=== PATIENT | female | born 1965 | race Hispanic/Latino ===

== ENCOUNTER 2017-09-04 10:29 | Outpatient (CLI) | payer MEDICARE, MEDICAID | END 2017-09-04 10:30 | disposition home or self-care (01) | LOC: BICMAMMO 10:29 | PROVIDERS: ATTEND Family Medicine | DX: Z12.31 Encounter for screening mammogram for malignant neoplasm of breast (principal); M81.0 Age-related osteoporosis without current pathological fracture | CPT/HCPCS: 77063; 77067; 77080 ==

== ENCOUNTER 2017-09-15 14:30 | Outpatient (CLI) | payer MEDICARE, MEDICAID | END 2017-09-15 14:31 | disposition home or self-care (01) | LOC: BICRAD 14:30 | PROVIDERS: ATTEND Family Medicine | DX: R05 Cough (principal); R06.02 Shortness of breath; M81.0 Age-related osteoporosis without current pathological fracture; I51.7 Cardiomegaly; R09.89 Other specified symptoms and signs involving the circulatory and respiratory systems; J98.4 Other disorders of lung; Z94.0 Kidney transplant status; Z79.899 Other long term (current) drug therapy | CPT/HCPCS: 71046; 72072; 72100 ==

== ENCOUNTER 2017-11-03 09:01 | Emergency (ER) | payer MEDICARE, MEDICAID ==
[2017-11-03 09:27] LABS: #Eosinphils 0.3 thou/uL (0.0-0.7); #Lymphocytes 1.3 thou/uL (1.20-3.40); #Monocytes 0.6 thou/uL (0.11-0.59); %Basophils 0.6 % (0.0-1.0); %Eosinophils 4.5 % (0.0-10.0); %Lymphocytes 20.4 % (21.0-51.0); %Monocytes 9.3 % (0.0-10.0); %Neutrophils 65.1 % (42.0-75.0); Hemoglobin 14.3 g/dL (12.0-16.0); Mean Platelet Volume 10.8 fL (7.4-10.4); Platelet Count 116 thou/uL (130-400); RBC Distribution Width 13.8 % (11.5-14.5); Red Blood Cell (RBC) Count 4.47 mill/uL (4.20-5.40); White Blood Cell (WBC) Count 6.2 thou/uL (4.8-10.8)
--- NOTE | 2017-11-03 09:34 | RAD ---
CHEST ONE VIEW: History: Palpitation. Kidney transplant patient. Comparison: 06-10-15 FINDINGS: Upright chest radiograph demonstrates enlarged cardiac silhouette. The pulmonary vessels are slightly prominent. No consolidation or mass. No pneumothorax or osseous abnormalities. There appears to be p revious vertebroplasty change projecting over the midthoracic spine. IMPRESSION: Cardiomegaly with pulmonary vascular prominence. Correlate for volume overload. POS: [facility]
[2017-11-03 09:45] LABS: ALT (SGPT) 70 U/L (8-55); AST (SGOT) 56 U/L (5-34); Albumin 4.3 g/dL (3.5-5.0); Alkaline Phosphatase 212 U/L (40-150); Anion Gap 14 mmol/L (10-20); BUN (Urea Nitrogen) 30 mg/dL (9.8-20.1); Bilirubin, Total 0.6 mg/dL (0.2-1.2); CK (CPK) 60 U/L (29-168); Calc. Creatinine Clearance 0 mL/min (70-130); Calcium 9.4 mg/dL (7.8-10.44); Carbon Dioxide 21 mmol/L (22-29); Chloride 111 mmol/L (98-107); Estimated GFR-MDRD 38; Globulin 3.5 g/dL (2.4-3.5); Glucose 98 mg/dL (70-105); Lipase 17 U/L (8-78); Potassium 4.6 mmol/L (3.5-5.1); Protein, Total 7.8 g/dL (6.0-8.3); Sodium 141 mmol/L (136-145)
[2017-11-03] MEDS ORDERED: Aspirin 325 MG TAB ONE (09:45)
[2017-11-03] MEDS ORDERED: cloNIDine 0.1 MG TAB ONE (09:45)
[2017-11-03 09:49] LABS: CKMB 1.1 ng/mL (0-6.6); Troponin I Less than 0.010 ng/mL (< 0.028)
--- NOTE | 2017-11-05 15:02 | EKG ---
Test Reason : Blood Pressure : / mmHG Vent. Rate : 074 BPM Atrial Rate : 074 BPM P-R Int : 126 ms QRS Dur : 078 ms QT Int : 376 ms P-R-T Axes : 034 -07 080 degrees QTc Int : 417 ms Normal sinus rhythm Normal ECG Confirmed by LENNY PINZON ([id number]), commercial production editor EMEKA DANIEL ([id number]) on 11/05/2017 3:00:39 PM Referred By: Confirmed By:LENNY PINZON
== END 2017-11-03 11:50 | disposition home or self-care (01) ==
LOC: ERS 09:01
DX: I12.0 Hypertensive chronic kidney disease with stage 5 chronic kidney disease or end stage renal disease (principal); E11.22 Type 2 diabetes mellitus with diabetic chronic kidney disease; N18.6 End stage renal disease; E78.5 Hyperlipidemia, unspecified; F17.210 Nicotine dependence, cigarettes, uncomplicated; Z99.2 Dependence on renal dialysis; Z79.4 Long term (current) use of insulin
CPT/HCPCS: 71045; 80053; 82553; 83690; 84484; 85025; 93005; 94760

== ENCOUNTER 2018-01-13 15:29 | Emergency (ER) | payer MEDICARE, MEDICAID ==
[2018-01-13 15:58] LABS: #Eosinphils 0.1 thou/uL (0.0-0.7); #Lymphocytes 0.9 thou/uL (1.20-3.40); #Monocytes 0.5 thou/uL (0.11-0.59); #Neutrophils 5.6 thou/uL (1.40-6.50); %Basophils 0.1 % (0.0-1.0); %Eosinophils 0.9 % (0.0-10.0); %Lymphocytes 12.8 % (21.0-51.0); %Neutrophils 79.2 % (42.0-75.0); Hemoglobin 12.8 g/dL (12.0-16.0); Mean Corpuscular HGB CONC 33.1 g/dL (32.0-36.0); Mean Corpuscular Hemoglobin 31.3 pg (27.0-31.0); Mean Corpuscular Volume 94.7 fl (81.0-99.0); Mean Platelet Volume 10.3 fL (7.4-10.4); Platelet Count 154 thou/uL (130-400); RBC Distribution Width 13.2 % (11.5-14.5); Red Blood Cell (RBC) Count 4.09 mill/uL (4.20-5.40); White Blood Cell (WBC) Count 7.1 thou/uL (4.8-10.8)
--- NOTE | 2018-01-13 16:01 | CT ---
CT BRAIN WITHOUT CONTRAST: 01/13/18 HISTORY: Left sided sensation changes, patient is a kidney transplant recipient. FINDINGS: Comparison made with exam of 07/18/15. Old lacunar infarct in the left rolando is again seen. Changes of chronic small vessel ischemic disease and lacunar infarction. The periventricular white matter are again noted. No evidence of acute infarc t, hemorrhage, midline shift, or abnormal extra-axial fluid collections are seen. The ventricular siz e is normal and the basilar cisterns patent. The bony calvarium is intact. The visualized paranasal s inuses and mastoid air cells are well aerated. IMPRESSION: No CT evidence of acute intracranial process. Findings were discussed over the telephone with ER physician, at 3:42 p.m. POS: [facility]
[2018-01-13 16:20] LABS: PTT 30.2 SEC (22.9-36.1); Prothrombin Time 13.3 SEC (12.0-14.7)
[2018-01-13 16:21] LABS: ALT (SGPT) 38 U/L (8-55); AST (SGOT) 37 U/L (5-34); Albumin 4.5 g/dL (3.5-5.0); Alkaline Phosphatase 224 U/L (40-150); Anion Gap 15 mmol/L (10-20); BUN (Urea Nitrogen) 29 mg/dL (9.8-20.1); Bilirubin, Total 0.5 mg/dL (0.2-1.2); Calc. Creatinine Clearance 0 mL/min (70-130); Carbon Dioxide 19 mmol/L (22-29); Chloride 106 mmol/L (98-107); Estimated GFR-MDRD 30; Globulin 3.9 g/dL (2.4-3.5); Glucose 362 mg/dL (70-105); Potassium 5.4 mmol/L (3.5-5.1); Protein, Total 8.4 g/dL (6.0-8.3); Sodium 135 mmol/L (136-145)
[2018-01-13 16:26] LABS: CKMB 1.3 ng/mL (0-6.6); Troponin I Less than 0.010 ng/mL (< 0.028)
[2018-01-13] MEDS ORDERED: Insulin Regular 300 UNITS/3 ML VIAL ONE (16:51)
[2018-01-13] MEDS ORDERED: cloNIDine 0.1 MG TAB ONE (16:51)
== END 2018-01-13 17:30 | disposition home or self-care (01) ==
LOC: ERS 15:29
DX: E11.65 Type 2 diabetes mellitus with hyperglycemia (principal); E11.22 Type 2 diabetes mellitus with diabetic chronic kidney disease; I12.0 Hypertensive chronic kidney disease with stage 5 chronic kidney disease or end stage renal disease; N18.6 End stage renal disease; D64.9 Anemia, unspecified; F17.210 Nicotine dependence, cigarettes, uncomplicated; Z79.899 Other long term (current) drug therapy
CPT/HCPCS: 36415; 36416; 70450; 80053; 82010; 82553; 84484; 85025; 85610; 85730; 93005; J1815

== ENCOUNTER 2018-05-10 05:28 | Emergency (ER) | payer MEDICARE, MEDICAID ==
[2018-05-10 05:51] LABS: #Basophils 0.1 thou/uL (0.0-0.2); #Eosinphils 0.2 thou/uL (0.0-0.7); #Lymphocytes 1.4 thou/uL (1.20-3.40); #Monocytes 0.8 thou/uL (0.11-0.59); #Neutrophils 3.6 thou/uL (1.40-6.50); %Basophils 1.2 % (0.0-1.0); %Eosinophils 2.9 % (0.0-10.0); %Lymphocytes 23.6 % (21.0-51.0); %Monocytes 13.3 % (0.0-10.0); Hemoglobin 11.9 g/dL (12.0-16.0); Mean Corpuscular HGB CONC 32.9 g/dL (32.0-36.0); Mean Corpuscular Hemoglobin 30.8 pg (27.0-31.0); Mean Corpuscular Volume 93.5 fL (78.0-98.0); Mean Platelet Volume 10.9 fL (7.4-10.4); Platelet Count 145 thou/uL (130-400); Red Blood Cell (RBC) Count 3.85 mill/uL (4.20-5.40)
[2018-05-10] MEDS ORDERED: Nitroglycerin 2% Ointment 1 INCH/1 GM Packet ONE (05:54)
[2018-05-10 06:07] LABS: ALT (SGPT) 29 U/L (8-55); AST (SGOT) 31 U/L (5-34); Albumin 4.3 g/dL (3.5-5.0); Alkaline Phosphatase 155 U/L (40-150); Anion Gap 12 mmol/L (10-20); BUN (Urea Nitrogen) 30 mg/dL (9.8-20.1); Bilirubin, Total 0.5 mg/dL (0.2-1.2); CK (CPK) 54 U/L (29-168); Calc. Creatinine Clearance 0 mL/min (70-130); Calcium 9.2 mg/dL (7.8-10.44); Carbon Dioxide 23 mmol/L (22-29); Chloride 109 mmol/L (98-107); Estimated GFR-MDRD 37; Globulin 3.7 g/dL (2.4-3.5); Glucose 93 mg/dL (70-105); Potassium 4.7 mmol/L (3.5-5.1); Sodium 139 mmol/L (136-145)
[2018-05-10 06:11] LABS: CKMB 1.1 ng/mL (0-6.6); Troponin I Less than 0.010 ng/mL (< 0.028)
--- NOTE | 2018-05-10 08:45 | RAD ---
CHEST 1 VIEW: Date: 05/10/18 INDICATION: History of chest pain, shortness of breath. COMPARISON: Prior exam dated 11/03/17. FINDINGS: There is cardiomegaly, which is stable. Pulmonary vasculature is within normal limits. No consolidati on, pleural effusion, or pneumothorax is evident. Surgical clips are again seen within the left upper extremity/left axillary region. Diffuse osteopenia remains. Cholecystectomy clips are seen within th e right upper quadrant. IMPRESSION: Stable cardiomegaly. No definite acute abnormality. POS: [facility]
== END 2018-05-10 07:17 | disposition home or self-care (01) ==
LOC: ERS 05:28
DX: R07.89 Other chest pain (principal); I12.0 Hypertensive chronic kidney disease with stage 5 chronic kidney disease or end stage renal disease; E11.22 Type 2 diabetes mellitus with diabetic chronic kidney disease; N18.6 End stage renal disease; D63.1 Anemia in chronic kidney disease; Z99.2 Dependence on renal dialysis; Z94.0 Kidney transplant status; Z79.4 Long term (current) use of insulin; Z79.899 Other long term (current) drug therapy
CPT/HCPCS: 36415; 71045; 80053; 82550; 82553; 84484; 85025; 93005

== ENCOUNTER 2018-07-12 12:00 | Emergency (ER) | payer MEDICARE, OTHER ==
[2018-07-12 13:31] LABS: Bilirubin Negative (Negative); Blood, Urine Negative (Negative); Clarity CLEAR (Clear); Glucose, Urine (Dipstick) Negative (Negative); Leukocyte Negative (Negative); Nitrite Negative (Negative); Protein, Urine (Dipstick) Negative (Neg-Trace); Urobilinogen 0.2 mg/dL (0.2-1.0); pH, Urine 5.5 (5.0-9.0)
[2018-07-12] MEDS ORDERED: Acetaminophen 500 MG TAB ONE (14:10)
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
== END 2018-07-12 14:24 | disposition home or self-care (01) ==
LOC: ERS 12:00
DX: S83.91XA Sprain of unspecified site of right knee, initial encounter (principal); R07.9 Chest pain, unspecified; I12.0 Hypertensive chronic kidney disease with stage 5 chronic kidney disease or end stage renal disease; E11.22 Type 2 diabetes mellitus with diabetic chronic kidney disease; N18.6 End stage renal disease; D63.1 Anemia in chronic kidney disease; I63.9 Cerebral infarction, unspecified; Z79.899 Other long term (current) drug therapy; W22.10XA Striking against or struck by unspecified automobile airbag, initial encounter; V89.2XXA Person injured in unspecified motor-vehicle accident, traffic, initial encounter
CPT/HCPCS: 71046; 81003

== ENCOUNTER 2019-05-30 16:03 | Emergency (ER) | payer MEDICARE, OTHER ==
[2019-05-30] MEDS ORDERED: Acetaminophen 500 MG TAB ONE (16:27)
--- NOTE | 2019-05-30 16:46 | RAD ---
Left knee 4 views: 05/30/2019 COMPARISON: None HISTORY: Fall, left knee pain FINDINGS: There is extensive atherosclerotic calcification posterior to the left tibia and femur. No knee joint effusion, displaced fracture, or evidence of dislocation. The bones appear demineralized. IMPRESSION: No acute osseous abnormality.
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
== END 2019-05-30 17:40 | disposition home or self-care (01) ==
LOC: ERS 16:03
DX: S73.101A Unspecified sprain of right hip, initial encounter (principal); S80.02XA Contusion of left knee, initial encounter; E11.22 Type 2 diabetes mellitus with diabetic chronic kidney disease; D63.1 Anemia in chronic kidney disease; I12.0 Hypertensive chronic kidney disease with stage 5 chronic kidney disease or end stage renal disease; N18.6 End stage renal disease; Z99.2 Dependence on renal dialysis; Z79.4 Long term (current) use of insulin; W18.30XA Fall on same level, unspecified, initial encounter

== ENCOUNTER 2019-11-07 17:29 | Emergency (ER) | payer MEDICARE, OTHER ==
[~2019-11-07 17:29] MED LIST: Iopamidol-370 76% 500 ML 1 ML ONE
[2019-11-07 18:13] LABS: #Lymphocytes 0.3 thou/uL (1.20-3.40); #Neutrophils 7.5 thou/uL (1.40-6.50); %Basophils 0.3 % (0.0-1.0); %Lymphocytes 3.5 % (21.0-51.0); %Monocytes 0.2 % (0.0-10.0); Hemoglobin 8.5 g/dL (12.0-16.0); Mean Corpuscular HGB CONC 33.3 g/dL (32.0-36.0); Mean Corpuscular Hemoglobin 30.9 pg (27.0-31.0); Mean Corpuscular Volume 92.6 fL (78.0-98.0); Mean Platelet Volume 10.2 fL (7.4-10.4); Platelet Count 105 thou/uL (130-400); RBC Distribution Width 15.8 % (11.5-14.5); Red Blood Cell (RBC) Count 2.75 mill/uL (4.20-5.40); White Blood Cell (WBC) Count 7.9 thou/uL (4.8-10.8)
[2019-11-07 18:19] LABS: ALT (SGPT) 7 U/L (8-55); AST (SGOT) 40 U/L (5-34); Albumin 3.7 g/dL (3.5-5.0); Alkaline Phosphatase 140 U/L (40-110); Anion Gap 20 mmol/L (10-20); BUN (Urea Nitrogen) 71 mg/dL (9.8-20.1); Bilirubin, Total 0.6 mg/dL (0.2-1.2); Calc. Creatinine Clearance 0 mL/min (70-130); Calcium 9.2 mg/dL (7.8-10.44); Carbon Dioxide 18 mmol/L (22-29); Chloride 103 mmol/L (98-107); Estimated GFR-MDRD 13; Globulin 3.8 g/dL (2.4-3.5); Glucose 158 mg/dL (70-105); Potassium 5.8 mmol/L (3.5-5.1); Protein, Total 7.5 g/dL (6.0-8.3); Sodium 135 mmol/L (136-145)
--- NOTE | 2019-11-07 18:20 | RAD ---
PORTABLE CHEST: Date: 11-07-2019 Provided Clinical History: Dyspnea. FINDINGS: Comparison 05-10-18. Cardiac silhouette appears enlarged. There is bilateral, left greater than right, parahilar airspace disease. There is no pleural fluid or pneumothorax apparent. IMPRESSION: Bilateral parahilar airspace disease. Pneumonia versus edema. POS: [facility]
[2019-11-07 18:25] LABS: Anisocytosis SLIGHT = 6-15 cells (100X) (0-5/hpf); MDiff Complete? YES; Platelet Morphology Comment Appears Decreased; Polychromasia SLIGHT = 2-3 cells (100X) (0-2/hpf)
[2019-11-07] MEDS ORDERED: Cefepime 2 GM VIAL ONE (18:30)
--- NOTE | 2019-11-07 19:04 | CT ---
CT PULMONARY ANGIOGRAM WITH IV CONTRAST AND 3D MIP RECONSTRUCTIONS: Date: 11-07-2019 Provided Clinical History: Tachycardia and hypoxia. FINDINGS: There is no evidence for central or segmental pulmonary embolus. Vascular calcifications including co ronary are demonstrated. The airway appears patent and is of normal caliber. No evidence for thoracic lymph node enlargement. There is no pleural fluid or pneumothorax apparent. There is diffuse bilateral airspace disease, comprised predominately of consolidation involving both lower lobes, with areas of ground glass opacity seen in a wide-spread but occasional peripheral distr ibution involving both lungs, left greater than right. The osseous structures demonstrate no concerning lytic or blastic lesions. Vertebroplasty changes and remote appearing compression deformities are seen involving the thoracic spine. The visualized portions of the upper abdomen appear unremarkable. IMPRESSION: 1. No evidence for central or segmental pulmonary embolus. 2. Extensive bilateral airspace disease. Imaging features can be seen in the setting of viral pneumon ia, but are nonspecific and can occur with a variety of infectious and noninfectious processes. POS: [facility]
[2019-11-07 19:29] LABS: Actual Bicarbonate (HCO3a) 16.6 mEq/L (22-28); Analyzer IN Cardio OR; Base Excess (BEa) -7.1 mEq/L (-2.0 to +3.0); CO2 Tension 29.3 mmHg (35.0-45.0); Calcium, Ionized 1.11 mmol/L (1.12-1.30); Potassium - ABG Lab 5.52 mmol/L (3.70-5.30); pH, Arterial 7.37 (7.35-7.45)
[2019-11-07 19:54] LABS: O2 Tension (PaO2) 49.8 mmHg (80.0-100.0)
[2019-11-07 19:55] LABS: ALV-art Gradient 626.575 (0-20); Puncture Site LBA
[2019-11-07] MEDS ORDERED: Ketamine 50 MG/ML (10ML VIAL) ONE (20:25)
[2019-11-07] MEDS ORDERED: Rocuronium Bromide 10 MG/ML (10ML VIAL) ONE (20:25)
--- NOTE | 2019-11-07 20:38 | HP ---
CHIEF COMPLAINT: Shortness of breath, cough, and shaking. HISTORY OF PRESENT ILLNESS: This patient is a 54-year-old female, who has a history of end-stage renal disease, status post renal transplant. She is followed at [facility] and she is followed by Dr. Angelo Black there. The patient reports that she was just in the hospital and just discharged about 5 days ago from [facility], where she was admitted for a right-sided abdominal hematoma. She had surgery and has a wound VAC in place at this time. The patient reports over the last several days, she has had shaking, increased shortness of breath and a cough that is primarily productive of a clear sputum. She is unaware of having any specific fevers, but says she is shaking. She is unaware of any ill contacts other than having been in the hospital in [place]. PAST MEDICAL HISTORY: Notable for end-stage renal disease, status post renal transplant, diabetes, hypertension, history of hepatitis C, which is previously treated, dyslipidemia, anxiety, depression, and history of chronic pain syndrome, previously on Suboxone. PAST SURGICAL HISTORY: Cholecystectomy, shunt in the left arm, x2, kidney transplant, gastric bypass, and right abdominal wall hematoma. She also reported a history of hernia repair. FAMILY HISTORY: Notable for renal disease. SOCIAL HISTORY: The patient denies smoking, drinking, or drugs. Her record indicates that she previously did smoke half a pack cigarettes per day. Her just passed in May. She currently lives alone. ALLERGIES: INSULIN DETEMIR, LEVEMIR FLEXPEN. CURRENT MEDICATIONS: 1. Tacrolimus 1.5 mg one p.o. q.a.m., 3 mg q. evening. 2. Suboxone 2/0.5 sublingual daily. 3. Prednisone 30 mg daily. 4. Lyrica 50 mg t.i.d. 5. Lasix 20 mg every other day. 6. Azathioprine 50 mg 0.5 b.i.d. 7. Amlodipine 5 mg two p.o. daily. 8. Lantus SoloSTAR sliding scale. 9. Metoprolol 100 mg daily. 10. Prograf 0.5 mg 1.5 tablets daily. 11. Minocycline 100 mg daily. 12. Sodium bicarbonate 650 mg. 13. Bactrim DS. 14. Linezolid 600 mg. PHYSICAL EXAMINATION: VITAL SIGNS: Initial vital signs, the patient's O2 saturation was 70%. She was placed on a non-rebreather O2 at 95%, BP 118/73, pulse 114, respirations 26, temperature is 98.6 oral. Latest vital signs, BP 118/69, pulse 112, respirations 27, O2 saturation was 96% on 8 L nasal cannula. GENERAL APPEARANCE: The patient is ill-appearing. She is awake and alert. She is pleasant. She is able to identify person, place, and time. She is able to give history, although sketchy on number of details. HEENT: Pupils are reactive. HEART: Tachycardic without murmurs. LUNGS: Diminished with minimal rales. ABDOMEN: Soft, nontender, and nondistended. Positive bowel sounds. She does have a wound VAC on the right mid abdomen laterally. EXTREMITIES: No significant cyanosis, clubbing, or edema. PSYCHIATRIC: Normal affect and behavior. NEUROLOGIC: No focal deficits. LABORATORY DATA: White count 7.9, hemoglobin 8.5, platelets 105. Sodium 135, potassium 5.8, chloride 103, CO2 is 18, BUN 71, creatinine is 3.56, glucose 158, lactic acid 1.8, AST 40, ALT 7, alkaline phosphatase 140, albumin 3.7. Chest x-ray, bilateral perihilar airspace disease, pneumonia versus edema. CTA of the chest shows no evidence of PE, extensive bilateral airspace disease with features consistent with viral pneumonia, but nonspecific. IMPRESSION AND PLAN: 1. Acute hypoxic respiratory failure, providing supplemental oxygen. 2. Pneumonia. The patient appears to have bilateral infiltrates consistent with COVID-19, especially in the setting of a normal white count with low lymphocytes, anemia, thrombocytopenia, elevated AST and alkaline phosphatase with what appears to be associated acute renal injury. COVID test has been sent. Case has been discussed with Dr. Magana of [facility], who is recommending attempt to transfer the patient back to her transplant team. Otherwise, consider early intubation in this setting. I placed a call to the patient's transplant provider, Dr. Angelo Black through our transfer center, awaiting to hear back and should they decline transfer, the patient will need to be admitted into an intensive unit. 3. Status post renal transplant, on immunosuppression, unfortunately, making the patient's prognosis for this infection much worse. Again, we need some direction from the transplant team as far as continuing those medications currently, although I suspect they will need to be continued. 4. Acute kidney injury. The patient's previous GFR has been running around 30 to 38, but those are back to 2018 with nothing more recent. She appears to have some prerenal indices and we will hydrate. Continue to monitor. 5. Hyperkalemia in the setting of acute kidney injury. Again, should improve with hydration. 6. Anemia. This is below her previous baseline going back to 2018. It had been again somewhat unclear as to what her renal function is and whether this could be related to that. During the dictation I was able to speak to Dr. Oliver teran for Dr. Black at [facility], who has asked that we call the hospitalist group there in order to get the patient admitted to their facility, working through the transfer center in order to try to make that happen. Job ID: [id number]
[2019-11-07] MEDS ORDERED: Vancomycin 1 GM/200 ML BAG ONE (20:58)
[2019-11-07] MEDS ORDERED: fentaNYL Citrate/PF 2,000 MCG in Sodium Chloride 0.9% 60 ML IV SCH (21:00)
[2019-11-07 21:22] LABS: Actual Bicarbonate (HCO3a) 14.6 mEq/L (22-28); Analyzer IN Cardio ER; Base Excess (BEa) -9.8 mEq/L (-2.0 to +3.0); CO2 Tension 26.4 mmHg (35.0-45.0); Calcium, Ionized 1.06 mmol/L (1.12-1.30); Carboxyhemoglobin (COHb) 0.1 gm% (0.0-3.0); Hemoglobin (Hb) 6.2 g/dL (12.0-16.0); O2 Tension (PaO2) 96.8 mmHg (80.0-100.0); Potassium - ABG Lab 5.55 mmol/L (3.70-5.30); pH, Arterial 7.36 (7.35-7.45)
[2019-11-07 21:25] LABS: Puncture Site LBA
--- NOTE | 2019-11-07 22:15 | RAD ---
PORTABLE CHEST: Date: 11-07-2019 Provided Clinical History: Post intubation. FINDINGS: Comparison 11-07-2019. Interval placement of endotracheal tube, the tip of which terminates in the region of the thoracic in let. An enteric catheter has also been placed, the tip of which overlies the midabdomen. Additional s ignificant interval change from the prior examination is not apparent. IMPRESSION: As above. POS: [facility]
--- NOTE | 2019-11-08 15:30 | EKG ---
Test Reason : Blood Pressure : / mmHG Vent. Rate : 113 BPM Atrial Rate : 113 BPM P-R Int : 128 ms QRS Dur : 068 ms QT Int : 326 ms P-R-T Axes : 027 -16 079 degrees QTc Int : 447 ms Sinus tachycardia Biatrial enlargement Left ventricular hypertrophy Q III Cannot rule out Anterior infarct , age undetermined Abnormal ECG Confirmed by MELI MELTON, MARIELENA Putnam ([id number]), editor trade journal EMEKA DANIEL ([id number]) on 11/08/2019 3:30:25 PM Referred By: Confirmed By:MARIELENA GARRISON MD
== END 2019-11-08 00:08 | disposition short-term general hospital (02) ==
LOC: ERS 17:29
DX: U07.1 COVID-19 (principal); J18.9 Pneumonia, unspecified organism; N17.9 Acute kidney failure, unspecified; E87.5 Hyperkalemia; R09.02 Hypoxemia; R06.03 Acute respiratory distress; E10.22 Type 1 diabetes mellitus with diabetic chronic kidney disease; I12.0 Hypertensive chronic kidney disease with stage 5 chronic kidney disease or end stage renal disease; N18.6 End stage renal disease; D64.9 Anemia, unspecified; Z79.899 Other long term (current) drug therapy; Z79.4 Long term (current) use of insulin
CPT/HCPCS: 31500; 51702; 71045; 71275; 80053; 82805; 83605; 85025; 87040; 93005; 94760; 96365; 96366; 96367; 99285; J0692; J1956; J3010; J3370; J3490; Q9967; U0002; 36415; 87635